=== PATIENT | male | born 1985 | race Caucasian/White ===

== ENCOUNTER 2018-06-22 11:42 | Emergency (ER) | payer OTHER ==
[~2018-06-22] VITALS: Ht 195.6 cm; Wt 81.7 kg
[2018-06-22 11:49] VITALS: BP 102/72
[2018-06-22] MEDS ORDERED: AMOXICILLIN 50500 MG PO (11:58)
[2018-06-22] MEDS ORDERED: LIDOCAINE VISC100 ML PO (11:58)
== END 2018-06-22 12:05 | disposition home or self-care (01) ==
LOC: M.ERS 11:42
DX: J02.9 Acute pharyngitis, unspecified (principal)